=== PATIENT | female | born 1990 | race Caucasian/White ===

== ENCOUNTER → 2018-04-10 13:32 | Outpatient (CLI) | payer BC, SELFPAY ==
[2018-04-10 13:50] LABS: HCT 36.2 % (36.0-46.0); HGB 12.5 g/dL (12.0-15.5); Mean Corp. HGB Concentration 34.5 g/dL (32.0-36.0); Mean Corpuscular Hemoglobin 30.3 pg (27.0-33.0); Mean Corpuscular Volume 87.7 fL (80-95); Platelet Count 284 x1000/uL (130-400); RBC 4.13 m/cumm (4.00-5.20); RBC Distribution Width 12.8 % (11.7-14.6); White Blood Cell Count 10.34 k/cumm (4.4-10.8)
[2018-04-10 14:07] LABS: Glucose,1 Hr (Glucola) 74 mg/dL (80-140)
== END ==
PROVIDERS: PCP Physician Assistant Medical; Visit Provider Advanced Practice Midwife
DX: Z34.83 Encounter for supervision of other normal pregnancy, third trimester (principal); Z3A.28 28 weeks gestation of pregnancy
CPT/HCPCS: 36415; 82950; 85027

== ENCOUNTER 2018-06-06 12:33 | Outpatient (REF) | payer BC, SELFPAY | END 2018-06-06 12:53 | LOC: LBN 12:33 | PROVIDERS: PCP Physician Assistant Medical; Visit Provider Advanced Practice Midwife | DX: Z34.93 Encounter for supervision of normal pregnancy, unspecified, third trimester (principal); Z36.85 Encounter for antenatal screening for Streptococcus B | CPT/HCPCS: 87081 ==

== ENCOUNTER 2018-06-13 10:43 | Outpatient (CLI) | payer BC, SELFPAY ==
[2018-06-13 13:08] LABS: HCT 36.5 % (36.0-46.0); HGB 12.6 g/dL (12.0-15.5); Mean Corp. HGB Concentration 34.5 g/dL (32.0-36.0); Mean Corpuscular Hemoglobin 29.9 pg (27.0-33.0); Mean Corpuscular Volume 86.7 fL (80-95); Mean Platelet Volume 9.7 fL (8.0-11.0); Platelet Count 240 x1000/uL (130-400); RBC 4.21 m/cumm (4.00-5.20); White Blood Cell Count 8.96 k/cumm (4.4-10.8)
[2018-06-13 14:07] LABS: PROTEIN 23.5 mg/dL
[2018-06-13 14:16] LABS: COMMENT (LAB VIEW ONLY) 104.86 mg/dL; Prot/Crea Ur Ratio 0.22
[2018-06-13 14:17] LABS: ALT 56 U/L (12-78); AST 59 U/L (15-37); Albumin 2.8 g/dL (3.4-5.0); Alkaline Phosphatase 98 U/L (46-116); Bilirubin, Direct 0.07 mg/dL (0.00-0.20); Bilirubin, Total 0.3 mg/dL (0.2-1.0); Total Protein 6.3 g/dL (6.4-8.2); Uric Acid 4.2 mg/dL (2.6-6.0)
[2018-06-14 11:38] LABS: HIV-1/2 Ag & Ab Screen Negative (NEGAT)
== END 2018-06-13 11:03 ==
PROVIDERS: PCP Physician Assistant Medical; Visit Provider Advanced Practice Midwife
DX: Z34.93 Encounter for supervision of normal pregnancy, unspecified, third trimester (principal)
CPT/HCPCS: 36415; 80076; 85027; 86850; 86900; 86901; 87389; 82565; 84156; 84443; 84550

== ENCOUNTER 2018-06-15 12:27 | Outpatient (CLI) | payer BC, SELFPAY | END 2018-06-15 12:47 | PROVIDERS: PCP Physician Assistant Medical; Visit Provider Advanced Practice Midwife | DX: O26.893 Other specified pregnancy related conditions, third trimester (principal); Z3A.37 37 weeks gestation of pregnancy | CPT/HCPCS: 59025 ==

== ENCOUNTER 2018-06-19 15:15 | Observation (INO) | payer BC, SELFPAY ==
[2018-06-19 16:01] LABS: HCT 37.4 % (36.0-46.0); HGB 13.1 g/dL (12.0-15.5); Mean Corpuscular Volume 85.8 fL (80-95); Mean Platelet Volume 9.8 fL (8.0-11.0); Platelet Count 287 x1000/uL (130-400); RBC 4.36 m/cumm (4.00-5.20); RBC Distribution Width 13.3 % (11.7-14.6)
[2018-06-19 16:07] LABS: CREATININE 0.59 mg/dL (0.55-1.02)
[2018-06-19 16:22] LABS: ALT 38 U/L (12-78); AST 36 U/L (15-37); Albumin 2.8 g/dL (3.4-5.0); Alkaline Phosphatase 99 U/L (46-116); Bilirubin, Direct 0.07 mg/dL (0.00-0.20); Bilirubin, Total 0.3 mg/dL (0.2-1.0); Total Protein 6.9 g/dL (6.4-8.2); Uric Acid 3.8 mg/dL (2.6-6.0)
[2018-06-19 17:25] LABS: PROTEIN 21.6 mg/dL
[2018-06-19 17:33] LABS: COMMENT (LAB VIEW ONLY) 95.38 mg/dL; Prot/Crea Ur Ratio 0.22
== END 2018-06-19 19:00 | disposition home or self-care (01) ==
PROVIDERS: Admitting Provider Advanced Practice Midwife; PCP Physician Assistant Medical; Visit Provider Advanced Practice Midwife
DX: O16.3 Unspecified maternal hypertension, third trimester (principal); Z03.79 Encounter for other suspected maternal and fetal conditions ruled out; Z3A.37 37 weeks gestation of pregnancy
CPT/HCPCS: 36415; 80076; 85027; 59025; 82565; 84156; 84550; G0378

== ENCOUNTER 2018-06-20 21:15 | Observation (INO) | payer BC, SELFPAY ==
[2018-06-20 23:09] LABS: HCT 36.5 % (36.0-46.0); HGB 12.6 g/dL (12.0-15.5); Mean Corp. HGB Concentration 34.5 g/dL (32.0-36.0); Mean Corpuscular Hemoglobin 29.8 pg (27.0-33.0); Mean Corpuscular Volume 86.3 fL (80-95); Mean Platelet Volume 9.7 fL (8.0-11.0); Platelet Count 261 x1000/uL (130-400); RBC 4.23 m/cumm (4.00-5.20); White Blood Cell Count 9.71 k/cumm (4.4-10.8)
[2018-06-20 23:22] LABS: PROTEIN 20.8 mg/dL
[2018-06-20 23:23] LABS: COMMENT (LAB VIEW ONLY) 103.13 mg/dL
[2018-06-20 23:24] LABS: ALT 35 U/L (12-78); AST 33 U/L (15-37); Albumin 2.7 g/dL (3.4-5.0); Alkaline Phosphatase 99 U/L (46-116); BUN 8 mg/dL (7-18); Bilirubin, Direct 0.07 mg/dL (0.00-0.20); Bilirubin, Total 0.3 mg/dL (0.2-1.0); CREATININE 0.64 mg/dL (0.55-1.02); Total Protein 6.7 g/dL (6.4-8.2); Uric Acid 3.7 mg/dL (2.6-6.0)
[2018-06-21] MEDS: Lactated Ringers 1,000 ML 125 ML IV ×2 (00:21→08:02)
== END 2018-06-21 11:00 | disposition home or self-care (01) | DRG 833 ==
PROVIDERS: Admitting Provider Advanced Practice Midwife; PCP Physician Assistant Medical; Visit Provider Advanced Practice Midwife
DX: O13.3 Gestational [pregnancy-induced] hypertension without significant proteinuria, third trimester (principal); Z3A.38 38 weeks gestation of pregnancy
CPT/HCPCS: 80076; 84520; 85027; 96360; 96361; 82565; 84156; 84550; G0378

== ENCOUNTER 2018-06-22 16:15 | Inpatient (IN) | payer BC, SELFPAY ==
[2018-06-22] MEDS: Omeprazole 20 MG CAPCR PO (18:11)
[2018-06-22] MEDS: Zolpidem 5 MG TAB 10 MG PO (22:11)
[2018-06-23] VITALS (7 sets, daily range): BP systolic 88–156; BP diastolic 41–124; PULSE 103–139; RESP 17–24; TEMP 36.1–36.4; O2SAT 96–99
[2018-06-23] MEDS: Zolpidem 5 MG TAB 10 MG PO (01:22)
[2018-06-23] MEDS: Omeprazole 20 MG CAPCR PO (07:50)
[2018-06-23] MEDS: valACYclovir 500 MG TAB PO (07:50)
[2018-06-23] MEDS: Normal Saline Flush 10 ML SYR IVP (09:15)
[2018-06-23] MEDS: Lactated Ringers 1,000 ML 1000 ML IV (09:15)
[2018-06-23] MEDS: Lactated Ringers 1,000 ML 150 ML IV ×3 (09:45→20:39)
[2018-06-23] MEDS: fentaNYL 100 MCG/2 ML VIAL EP (10:07)
[2018-06-23] MEDS: Acetaminophen 500 MG TAB 1000 MG PO (14:03)
[2018-06-23] MEDS: NALBUPHINE 5 MG in Normal Saline 50 ML 100 MG IVPB (15:10)
[2018-06-23] MEDS: AZITHROMYCIN 500 MG in Normal Saline 250 ML 250 MG IVPB (19:30)
[2018-06-23] MEDS: Azithromycin 500 MG VIAL 1000 MG (19:30)
[2018-06-23] MEDS: Sodium Citrate 30 ML CUP (19:45)
[2018-06-23] MEDS: Ketorolac 15 MG/ML VIAL (21:40)
[2018-06-23] MEDS: ACETAMINOPHEN 1,000 MG/100 ML BTL 100 MG (21:42)
[2018-06-23] MEDS: oxyCODONE 5 mg/Acetaminophen 325 mg TAB PO ×2 (23:34→23:45)
[2018-06-24] MEDS: Acetaminophen 325 MG TAB 650 MG PO ×4 (00:37→20:30)
[2018-06-24] MEDS: Ketorolac 30 MG/ML VIAL IVP ×4 (03:02→21:18)
[2018-06-24] MEDS: Normal Saline Flush 10 ML SYR IVP ×3 (03:03→15:20)
[2018-06-24] MEDS: Lactated Ringers 1,000 ML 150 ML IV (05:10)
[2018-06-24 08:02] LABS: HCT 30.5 % (36.0-46.0); HGB 10.5 g/dL (12.0-15.5); Mean Corp. HGB Concentration 34.4 g/dL (32.0-36.0); Mean Corpuscular Hemoglobin 30.1 pg (27.0-33.0); Mean Corpuscular Volume 87.4 fL (80-95); Mean Platelet Volume 9.9 fL (8.0-11.0); Platelet Count 220 x1000/uL (130-400); RBC 3.49 m/cumm (4.00-5.20); RBC Distribution Width 13.1 % (11.7-14.6); White Blood Cell Count 17.38 k/cumm (4.4-10.8)
[2018-06-24] MEDS: valACYclovir 500 MG TAB PO (12:34)
[2018-06-24] MEDS: oxyCODONE 5 mg/Acetaminophen 325 mg TAB PO (12:34)
[2018-06-24] MEDS: Docusate Sodium 100 MG CAP PO (21:19)
[2018-06-24] MEDS: Zolpidem 5 MG TAB 10 MG PO (21:22)
[2018-06-25] MEDS: Acetaminophen 325 MG TAB 650 MG PO ×3 (02:08→17:11)
[2018-06-25] MEDS: Ketorolac 30 MG/ML VIAL IVP (04:30)
[2018-06-25] MEDS: Normal Saline Flush 10 ML SYR IVP (04:30)
--- NOTE | 2018-06-25 08:53 | ROE_ITS ---
SECTION DELIVERY NOTE Date of Procedure: June 23, 2018 Preoperative Diagnosis: 1. Intrauterine at term. 2. Gestational hypertension. 3. Breech presentation. Postoperative Diagnosis: Same. Procedure: Primary low transverse delivery. Surgeon: Paula Serna M.D. Content Architect: Sherlyn Posada CNM Anesthesia: Epidural Nurse Physician Aide: Dean Mccoy CRNA Fluids: 1400 cc of crystalloid Urine Output: 600 cc of clear xiomara urine in the Amador catheter at completion of procedure. Estimated Blood Loss: 800 cc Drains: Amador to gravity drainage Complications: None Specimens: Cord bloods to lab Disposition: Awake to recovery area in stable condition. Indications: A 27-year-old female with an estimated delivery of 07/05/2018 who underwent induction of labor f or elevated blood pressure at term. Patient was noted to have a magi breech presentation after spon taneous rupture of membranes allowed a better assessment of presenting part. Patient was couns eled regarding the need for a delivery and consented to the procedure. Findings at Time of Surgery: A viable female in magi breech presentation, spine to maternal right, weighing 7 pounds 9 oun isatu with clear amniotic fluid. Apgars 8 at 1 minute, 9 at 5 minutes. Normal placenta. Normal adnex a. Description of Procedure: Patient was taken to the operating room. Pre-existing epidural was dosed for operative analgesia wit h good results. A vaginal prep with Betadine was performed. Pre-existing Amador catheter was in plac e. She received erythromycin 500 mg IV in addition to ceftriaxone 2 gm IV prior to skin incision. A scalpel was used to incise the skin 2 cm superior to the pubic symphysis in a transverse fashion. T he underlying subcutaneous tissue was dissected using Bovie electrocautery to the level of the rectus fascia. The rectus fascia was then nicked in the midline with the scalpel and the incision was exte nded laterally with curved Jaimes scissors. Two Jaye clamps were applied to the inferior rectus fasc ia and the rectus muscles were dissected off of the overlying rectus fascia. A similar technique was carried out on the superior aspect of the same incision. The rectus muscles were then in the midline using Bovie electrocautery and the peritoneum was entered sharply with blunt dissection. The peritoneal incision was extended laterally with blunt technique and a bladder blade was placed i nto the abdominal incision to retract the bladder away from the operative field. The vesicouterine p eritoneum was tented up, incised with Metzenbaum scissors, and the incision extended laterally. The bladder flap was created digitally and the bladder blade was once again used to retract the bladder a way from the operative field. Scalpel was used to incise the lower uterine segment in a transverse f ashion. Upon entering into the uterus, the amniotic sac was intact. It was ruptured with the extens ion of the uterine incision in a transverse fashion using blunt technique. Single-gloved hand was pl aced into the uterus and the presenting part was then lifted out of the lower uterine segment, which allowed the anterior superior iliac crests to be grasped bilaterally and the buttocks to be delivered through the incision with the assistance of fundal pressure. This then allowed delivery of the legs. The arms were swept across the chest bilaterally and the head and shoulders were delivered with the assistance of a Bxxswrgmc-Repolwt-Tqag maneuver. Once delivered, the 's co rd was doubly clamped and cut and the infant was handed off to the waiting pediatric team. Cord bloods were collected and the placenta was then extracted with a combination of gentle cord trac tion and fundal massage. Uterus was then exteriorized, cleared of any remaining clots and debris, an d the uterine incision was closed with a locked suture of #0 Vicryl followed by a second suture of #0 Vicryl in a vertical mattress fashion. Any remaining bleeding was controlled with redbeb-oy-rngpe s utures of #0 Vicryl. The uterine incision on the patient's left side extended out to the broad ligam ent. The left and right lateral portions of the uterine incision was noted to be hemostatic. After careful inspection of the adnexa and posterior uterus, the uterus was returned to the abdomen and the paracolic gutters cleared of all clots and debris. Abdominal peritoneum was then reapproximated wit h a running suture of 2-0 Vicryl. The abdominal wall and bladder were inspected and noted to be hemo static. Rectus fascia was reapproximated with a running suture of #0 Vicryl extending from the left margin, completing at the right lateral margin. The fascial incision was inspected and found to be h emostatic. The subcutaneous tissue was irrigated. The subcutaneous space was closed with a run leigh suture of 2-0 Vicryl and the skin of the Pfannenstiel skin incision was reapproximated with a bah bcuticular closure using 4-0 Vicryl on a Konstantin needle. The skin of the Pfannenstiel skin incision wa s sealed with skin glue. The uterus was massaged for any remaining clots and debris. The patient was transported to recovery area in stable condition. All sponge, lap, and needle counts were correct x2.
[2018-06-25] MEDS: Ibuprofen 600 MG TAB PO ×2 (10:13→17:12)
[2018-06-25] MEDS: Docusate Sodium 100 MG CAP PO (10:13)
[2018-06-25] MEDS: valACYclovir 500 MG TAB PO (10:13)
[2018-06-25 16:07] LABS: HCT 29.8 % (36.0-46.0); HGB 10.1 g/dL (12.0-15.5); Mean Corp. HGB Concentration 33.9 g/dL (32.0-36.0); Mean Corpuscular Hemoglobin 29.6 pg (27.0-33.0); Mean Corpuscular Volume 87.4 fL (80-95); Mean Platelet Volume 9.4 fL (8.0-11.0); Platelet Count 282 x1000/uL (130-400); RBC 3.41 m/cumm (4.00-5.20); RBC Distribution Width 13.3 % (11.7-14.6); White Blood Cell Count 15.49 k/cumm (4.4-10.8)
[2018-06-25 16:27] LABS: ALT 23 U/L (12-78); AST 28 U/L (15-37); Albumin 2.3 g/dL (3.4-5.0); Alkaline Phosphatase 88 U/L (46-116); Anion Gap 9.8 mmol/L (3-11); BUN 9 mg/dL (7-18); Bilirubin, Total 0.2 mg/dL (0.2-1.0); CO2 25.2 mmol/L (21.0-32.0); CREATININE 0.64 mg/dL (0.55-1.02); Calcium 8.3 mg/dL (8.5-10.1); Chloride 106 mmol/L (98-107); Glucose 83 mg/dL (70-100); Potassium 3.7 mmol/L (3.5-5.1); Sodium 141 mmol/L (136-145); Total Protein 6.3 g/dL (6.4-8.2)
[2018-06-25] MEDS: Zolpidem 5 MG TAB 10 MG PO (21:27)
[2018-06-26] MEDS: oxyCODONE 5 mg/Acetaminophen 325 mg TAB PO ×2 (03:20→11:15)
[2018-06-26] MEDS: Ibuprofen 600 MG TAB PO ×2 (03:54→15:10)
[2018-06-26] MEDS: Acetaminophen 325 MG TAB 650 MG PO (06:23)
[2018-06-26] MEDS: Omeprazole 20 MG CAPCR PO (07:28)
[2018-06-26] MEDS: valACYclovir 500 MG TAB PO (07:28)
[2018-06-26] MEDS: Labetalol 100 MG TAB 50 MG PO (07:29)
== END 2018-06-26 15:55 | disposition home or self-care (01) | DRG 787 ==
PROVIDERS: Admitting Provider Advanced Practice Midwife; PCP Physician Assistant Medical; Visit Provider Obstetrics & Gynecology Gynecology
PROC: 10D00Z1 Extraction of Products of Conception, Low, Open Approach (ICD-10-PCS; CPT 59514; principal; 2018-06-23 19:15)
DX: O13.4 Gestational [pregnancy-induced] hypertension without significant proteinuria, complicating childbirth (principal); O98.32 Other infections with a predominantly sexual mode of transmission complicating childbirth; B00.89 Other herpesviral infection; Z37.0 Single live birth; Z3A.38 38 weeks gestation of pregnancy; O64.1XX0 Obstructed labor due to breech presentation, not applicable or unspecified
CPT/HCPCS: 59514; 36415; 80053; 85027; 86850; 86900; 86901; J0131; J0456; J0690; J1885; J2370; J2405; J3010; J3490

== ENCOUNTER 2018-06-30 19:59 | Emergency (ER) | payer BC, SELFPAY ==
[2018-06-30 20:03] VITALS: BP 158/109; PULSE 109; RESP 16; TEMP 36.7; O2SAT 97
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
[2018-06-30 20:22] LABS: Abs Immature Grans 0.05 k/cumm (0.0-0.09); Absolute Basophil Count 0.02 k/cumm (0.0-0.2); Absolute Eosinophil Count 0.22 k/cumm (0.0-0.7); Absolute Lymphocyte Count 3.65 k/cumm (1.2-3.4); Absolute Monocyte Count 0.88 k/cumm (0.11-0.7); Basophils % 0.2; Eosinophils % 1.8; HCT 33.6 % (36.0-46.0); HGB 11.5 g/dL (12.0-15.5); Immature Grans % 0.4; Lymphocytes % 30.4; Mean Corp. HGB Concentration 34.2 g/dL (32.0-36.0); Mean Corpuscular Hemoglobin 29.3 pg (27.0-33.0); Mean Corpuscular Volume 85.7 fL (80-95); Mean Platelet Volume 8.5 fL (8.0-11.0); Monocytes % 7.3; Neutrophils % 59.9; RBC 3.92 m/cumm (4.00-5.20); RBC Distribution Width 12.5 % (11.7-14.6)
[2018-06-30 20:24] LABS: Absolute Neutrophil Count 7.19 k/cumm (1.2-6.7)
[2018-06-30 20:31] VITALS: BP 156/79; PULSE 95; RESP 20; TEMP 36.8; O2SAT 98
[2018-06-30 20:42] LABS: ALT 27 U/L (12-78); AST 24 U/L (15-37); Alkaline Phosphatase 99 U/L (46-116); Anion Gap 15.4 mmol/L (3-11); BUN 14 mg/dL (7-18); Bilirubin, Total 0.3 mg/dL (0.2-1.0); CO2 20.6 mmol/L (21.0-32.0); CREATININE 0.69 mg/dL (0.55-1.02); Chloride 101 mmol/L (98-107); Glucose 99 mg/dL (70-100); Potassium 3.8 mmol/L (3.5-5.1); Sodium 137 mmol/L (136-145); Total Protein 7.9 g/dL (6.4-8.2)
[2018-06-30 20:45] VITALS: BP 156/79; PULSE 95; RESP 20; TEMP 36.8; O2SAT 98
[2018-06-30 20:58] LABS: Platelet Count 514 x1000/uL (130-400)
== END 2018-06-30 20:39 | disposition home or self-care (01) ==
LOC: ER 20:41
PROVIDERS: Emergency Provider Emergency Medicine; PCP Physician Assistant Medical
DX: O99.89 Other specified diseases and conditions complicating pregnancy, childbirth and the puerperium (principal); R10.11 Right upper quadrant pain; G89.18 Other acute postprocedural pain; Y83.8 Other surgical procedures as the cause of abnormal reaction of the patient, or of later complication, without mention of misadventure at the time of the procedure
CPT/HCPCS: 36415; 80053; 99284; 85025

== ENCOUNTER 2018-07-31 11:38 | Outpatient (CLI) | payer BC, SELFPAY ==
[2018-07-31 12:15] LABS: Abs Immature Grans 0.02 k/cumm (0.0-0.09); Absolute Basophil Count 0.02 k/cumm (0.0-0.2); Absolute Eosinophil Count 0.12 k/cumm (0.0-0.7); Absolute Lymphocyte Count 3.28 k/cumm (1.2-3.4); Absolute Monocyte Count 0.59 k/cumm (0.11-0.7); Basophils % 0.2; Eosinophils % 1.2; HCT 36.8 % (36.0-46.0); HGB 12.2 g/dL (12.0-15.5); Immature Grans % 0.2; Lymphocytes % 32.7; Mean Corp. HGB Concentration 33.2 g/dL (32.0-36.0); Mean Corpuscular Hemoglobin 28.2 pg (27.0-33.0); Mean Corpuscular Volume 85.2 fL (80-95); Mean Platelet Volume 9.1 fL (8.0-11.0); Monocytes % 5.9; Neutrophils % 59.8; Platelet Count 402 x1000/uL (130-400); RBC 4.32 m/cumm (4.00-5.20); RBC Distribution Width 13.8 % (11.7-14.6); White Blood Cell Count 10.03 k/cumm (4.4-10.8)
== END 2018-07-31 11:58 ==
PROVIDERS: PCP Physician Assistant Medical; Visit Provider Obstetrics & Gynecology
DX: N92.0 Excessive and frequent menstruation with regular cycle (principal)
CPT/HCPCS: 36415; 85025

== ENCOUNTER 2018-09-24 02:02 | Outpatient (CLI) | payer BC, SELFPAY ==
--- NOTE | 2018-10-17 13:38 | ZIOP_ITS ---
ZIO PATCH DATE OF DICTATION October 17, 2018 STUDY INDICATION Dizziness. REQUESTING PROVIDER TREVOR Isaacs FINDINGS The patient was monitored for 12 days and 14 hours. The patient was in sinus rhythm throughout, average heart rate 77 beats per minute, range 42 to 173 b eats per minute. There was no rare ectopy, less than 1% PACs and less than 1% PVCs. There were no tachy or sophia arrhythmias. There were 7 patient events. None of these events correlated with arrhythmia. FINAL INTEPRETATION Normal study. Symptoms not explained by arrhythmia. Josh Eric M.D. JOON/phuong T - 10/17/18
== END 2018-09-24 02:22 ==
PROVIDERS: PCP Physician Assistant Medical; Visit Provider Physician Assistant Medical
DX: R42 Dizziness and giddiness (principal)
CPT/HCPCS: 93225

== ENCOUNTER 2020-11-26 03:10 | Outpatient (CLI) | payer MEDICAID, SELFPAY ==
--- NOTE | 2020-12-01 12:06 | PDOC.EEG_ITS ---
Neurology EEG EEG: [facility] Department of Neurology LONG-TERM AMBULATORY EEG REPORT Date of Recordin11/26/20 at 15:44:18 to 11/27/20 at 05:46:28 Interpreting Physician: Dr. Anisha Houston PCP/Referring Provider: Alda MURRAY Reason for study: Ms. Cazares is a 29 year-old woman with a family history of seizures who had 2 events one year apart associated with loss of consciousness concerning for seizure. Current Medications: Home Medications Medication Instructions Recorded Confirmed Type albuterol sulfate [ProAir HFA] 1 - 2 puff INHALATION Q4H PRN 11/09/17 11/11/20 History inhaler valacyclovir [Valtrex] 500 mg PO DAILY tab-cap 11/09/17 11/11/20 History cyclobenzaprine 5 mg tablet 5 mg PO TID PRN #20 tab 07/03/18 11/11/20 Rx ascorbate calcium (vitamin C) 500 500 mg PO DAILY 11/25/19 11/11/20 History mg tablet cholecalciferol (vitamin D3) 50 2,000 unit PO DAILY 11/25/19 11/11/20 History mcg (2,000 unit) chewable tablet citalopram 20 mg tablet 30 mg PO DAILY tab 11/11/20 11/11/20 History cyproheptadine 4 mg tablet 4 mg PO QHS #90 tab 11/11/20 11/11/20 Rx ibuprofen 800 mg tablet 800 mg PO Q8H PRN #60 tab 11/11/20 11/11/20 Rx prochlorperazine maleate 5 mg 5 mg PO TID PRN #60 tab 11/11/20 11/11/20 Rx tablet METHODS: An 18-channel digitized electroencephalogram was recorded in the ambulatory setting with video. The 10/20 international system of electrode placement was used and bipolar and referential electrode montages were recorded. In addition to EEG the patient was monitored for EKG and by video. Activation procedures of photic stimulation and hyperventilation were performed if applicable. The duration of the recording was ~14 hours. DESCRIPTION OF EEG: Waking background activity: During maximal wakefulness a 10-Hz posterior background rhythm was present which was well-modulated, symmetrical, reactive to eye opening, and of moderate voltage. Faster frequencies were present in the bilateral anterior head regions. There was a normal anterior-posterior voltage gradient. Drowsy and sleeping background activity: During drowsiness, there was attenuation of the posterior dominant background rhythm and vertex waves. Normal stage II and III sleep was present with symmetrical sleep spindles, K- complexes, and vertex waves with slowing of the background rhythm to delta/theta frequencies. REM sleep manifested by rapid lateral eye movements and faster background rhythms was recorded. Arousal was unremarkable. Interictal abnormalities: none. Ictal findings: No events captured. Activating Procedures: Photic stimulation was performed which produced a symmetrical posterior driving response at various flash frequencies through 14 Hz at which time patient stopped photic stimulation due to side effects. Hyperventilation was performed with moderate effort and produced no physiological slowing of the background. EKG: EKG revealed normal sinus rhythm. INTERPRETATION: This long-term EEG is normal during the awake and sleep states as well as during the activation procedures. PRIOR EEG: none CLINICAL CORRELATION: No focal regions of cerebral dysfunction or epileptiform activity was present. Epilepsy remains a clinical diagnosis and a normal EEG does not rule out epilepsy. Clinical correlation is advised. Anisha Houston MD
== END 2020-11-26 03:11 | disposition home or self-care (01) ==
LOC: RT 03:10
PROVIDERS: PCP Family Medicine; Visit Provider Psychiatry & Neurology Neurology
DX: R41.89 Other symptoms and signs involving cognitive functions and awareness (principal); Z82.0 Family history of epilepsy and other diseases of the nervous system
CPT/HCPCS: 95714

== ENCOUNTER 2020-12-07 02:24 | Outpatient (CLI) | payer MEDICAID, SELFPAY ==
--- NOTE | 2020-12-07 11:35 | DI.MRI_ITS ---
EXAM: MR BRAIN WO CLINICAL HISTORY: seizure like events,SPELL OF ALTERED COGNITION,R41.89 TECHNIQUE: Multiplanar multisequence MRI of the brain was performed. COMPARISON: No exams were available for comparison FINDINGS: VENTRICLES AND EXTRA AXIAL SPACES: Normal in size and morphology for the patient's age. MIDLINE SHIFT: None. CEREBRAL PARENCHYMA: No focus of restricted diffusion to suggest acute infarct. No space-occupying le mikey identified. HEMORRHAGE: None. BRAINSTEM/CEREBELLUM: Normal. CALVARIUM: Normal. VISUALIZED PARANASAL SINUSES/MASTOIDS:There is a mucous retention cyst or polyp in the left maxillary sinus. [place] OF [place]: Normal flow void. PITUITARY GLAND: Unremarkable. OTHER FINDINGS: None. IMPRESSION: Unremarkable MRI of the brain. DATA REPOSITORY:
== END 2020-12-07 02:44 ==
PROVIDERS: PCP Family Medicine; Visit Provider Psychiatry & Neurology Neurology
DX: R41.89 Other symptoms and signs involving cognitive functions and awareness (principal)
CPT/HCPCS: 70551